=== PATIENT | female | born 1990 | race Caucasian/White ===

== ENCOUNTER 2016-12-20 16:57 | Emergency (ER) | payer OTHER ==
[2016-12-20 17:10] VITALS: BP 134/93
--- NOTE | 2016-12-20 17:15 | UC ---
Throat Pain/Nasal Sawyer HPI - HPI Summary HPI Summary: cough sore throat ear ache and drainage from right ear - History of Current Complaint Chief Complaint: UCRespiratory Stated Complaint: SORE THROAT/EARS/COUGH Time Seen by Provider: 12/20/16 17:13 Hx Obtained From: Patient Hx Last Menstrual Period: 12/08/16 ?: No Onset/Duration: Sudden Onset, Lasting Days - 5, Still Present Severity: Mild Cough: Productive Associated Signs & Symptoms: Positive: Sinus Discomfort, Nasal Discharge - Allergies/Home Medications Allergies/Adverse Reactions: Allergies Allergy/AdvReac Type Severity Reaction Status Date / Time No Known Allergies Allergy Verified 12/20/16 17:04 PMH/Surg Hx/FS Hx/Imm Hx Previously Healthy: Yes - Surgical History Surgical History: Yes Surgery Procedure, Year, and Place: 2004 Back surgery- rods placed. Tonsilectomy - Family History Known Family History: Positive: None - Social History Occupation: Employed Full-time - [employer] [place] Lives: With Family Alcohol Use: Occasionally Substance Use Type: None Smoking Status (MU): Never Smoked Tobacco - Immunization History Most Recent Influenza Vaccination: 2016 Review of Systems Constitutional: Chills, Fatigue Skin: Negative Eyes: Negative ENT: Sore Throat, Ear Ache - drainage right ear Respiratory: Negative Cardiovascular: Negative Gastrointestinal: Negative Genitourinary: Negative Motor: Negative Neurovascular: Negative Musculoskeletal: Negative Neurological: Negative Psychological: Negative All Other Systems Reviewed And Are Negative: Yes Physical Exam Triage Information Reviewed: Yes Appearance: Well-Appearing, No Pain Distress, Well-Nourished Vital Signs: Initial Vital Signs Temp 98.4 F 12/20/16 17:05 Pulse 92 12/20/16 17:05 Resp 18 12/20/16 17:05 BP 134/93 12/20/16 17:05 Pulse Ox 99 12/20/16 17:05 Vital Signs Reviewed: Yes Eye Exam: Normal Eyes: Positive: Conjunctiva Clear ENT Exam: Other ENT: Positive: Normal ENT inspection, Hearing grossly normal, Pharynx normal, Pharyngeal erythema, TMs normal - left, Other: - foul drainage right ear. Negative: Nasal congestion, Nasal drainage, Tonsillar swelling, Tonsillar exudate, Trismus, Muffled/hoarse voice Dental Exam: Normal Neck exam: Normal Neck: Positive: Supple, Nontender, No Lymphadenopathy Respiratory Exam: Normal Respiratory: Positive: Chest non-tender, Lungs clear, Normal breath sounds, No respiratory distress, No accessory muscle use Cardiovascular Exam: Normal Cardiovascular: Positive: RRR, No Murmur, Pulses Normal, Brisk Capillary Refill Musculoskeletal Exam: Normal Musculoskeletal: Positive: Strength Intact, ROM Intact, No Edema Neurological Exam: Normal Neurological: Positive: Alert Psychological Exam: Normal Skin Exam: Normal Diagnostics - Laboratory ABG Interpretation: strep (-) refused flu swab Throat Pain/Nasal Course/Dx - Course Assessment/Plan: ofloxin ear drops, tylenol, ibuprofen increase fluids follow with pcp - Differential Dx/Diagnosis Differential Diagnosis/HQI/PQRI: Otitis Media, Sinusitis, URI Provider Diagnoses: Right otits externa Discharge - Discharge Plan Condition: Stable Disposition: HOME Prescriptions: Ciproflox/Dexameth OTIC.SUSP* [Ciprodex OTIC.SUSP*] 4 drop .SEE ORDER BID #1 [id number] Patient Education Materials: Otitis Externa (ED), Upper Respiratory Infection ( ED) Referrals: Ronald Schulz MD [Primary Care Provider] - 12/22/16 (for your flu vaccine! )
== END 2016-12-20 18:03 | disposition home or self-care (01) ==
LOC: UCEAST 16:57
DX: H60.91 Unspecified otitis externa, right ear (principal)
CPT/HCPCS: 87651; 99202; G0463